=== PATIENT | male | born 1950 | race Caucasian/White ===

== ENCOUNTER 2017-03-27 18:16 | Inpatient (IN) | payer BC ==
[2017-03-27] MEDS ORDERED: Diltiazem IV* 5 MG/ML 5 ML VIAL (for loading dose/IV Push) (25 MG) IV PUSH ONE (19:39)
[2017-03-27] MEDS ORDERED: NS 0.9% 1000 ML* 1,000 ML IV ONE (19:39)
[2017-03-27 20:00] LABS: Hematocrit 40 % (42-52); Hemoglobin 13.6 g/dl (14.0-18.0); Mean Corpuscular HGB Conc 35 g/dl (31-36); Mean Corpuscular Hemoglobin 33 pg (27-31); Mean Corpuscular Volume 95 fL (80-94); Mean Platelet Volume 7 um3 (7.4-10.4); Red Blood Count 4.18 10^6/ul (4.0-5.4); Red Cell Distribution Width 13 % (10.5-15)
[2017-03-27 20:15] LABS: BUN/Creatinine Ratio 28.3 (8-20); Calcium 9.3 mg/dL (8.6-10.3); EGFR African American 106.2 (>60); EGFR Non-African American 82.6 (>60); Magnesium 1.9 mg/dL (1.9-2.7); Potassium 3.6 mmol/L (3.5-5.0); Total Bilirubin 0.6 mg/dL (0.2-1.0)
[2017-03-27 20:17] LABS: Troponin I 0.01 ng/mL (<0.04)
--- NOTE | 2017-03-27 20:53 | ED ---
Bruna Cook Erika, scribed for Anam Lennon MD on 03/27/17 at 2034 . HPI Febrile Illness - HPI Summary HPI Summary: Patient is a 66-year-old male presenting to the ED with a CC of fever. Patient reports that for the past 2 days, he has had a fever with a T max around 101 - pt has been taking ibuprofen, most recently at 12:00 today. This afternoon, patient also developed SOB on exertion. He denies cough, chest pain, nausea, vomiting, and diarrhea. He does note that starting on 03/25/2017, he has had painless swelling in his right toes, which has not changed since then. Pt denies Hx arrhythmia. He does note echocardiogram 2 years ago which he states showed atrial enlargement and slight ventricular wall enlargement. Hx rosacea. Pt denies Hx DM. He states he has 1 drink/night and has never smoked. - History of Current Complaint Chief Complaint: EDFever Time Seen by Provider: 03/27/17 19:34 Hx Obtained From: Patient Onset/Duration: Started Days Ago - 2 days Timing: Constant Temperature: 101 F Current Severity: Mild Pain Intensity: 0 Pain Scale Used: 0-10 Numeric Alleviating Factors: OTC Medicine - ibuprofen Associated Signs and Symptoms: SOB - on exertion today - Allergy/Home Medications Allergies/Adverse Reactions: Allergies Allergy/AdvReac Type Severity Reaction Status Date / Time Sulfa Antibiotics Allergy Rash Verified 03/28/17 03:09 Home Medications: Home Medications Atorvastatin* [Lipitor*] 20 mg PO QPM 03/27/17 [History Confirmed 03/27/17] Minocycline HCl 50 mg PO DAILY PRN 03/27/17 [History Confirmed 03/27/17] PMH/Surg Hx/FS Hx/Imm Hx Endocrine/Hematology History: Denies: Hx Diabetes Cardiovascular History: Reports: Hx Hypertension Infectious Disease History: No Infectious Disease History: Denies: Traveled Outside the [place] in Last 30 Days - Family History Known Family History: Positive: Other - subarachnoid hemorrhage in brother age 31 - Social History Alcohol Use: Daily - 1 drink Hx Substance Use: No Substance Use Type: Reports: None Hx Tobacco Use: No Smoking Status (MU): Never Smoked Tobacco Review of Systems Positive: Fever Negative: Chest Pain Positive: Shortness Of Breath. Negative: Cough Negative: Vomiting, Diarrhea, Nausea Positive: Edema - R toes All Other Systems Reviewed And Are Negative: Yes Physical Exam Triage Information Reviewed: Yes Vital Signs On Initial Exam: Initial Vitals Temp Pulse Resp BP Pulse Ox 100.4 F 76 20 152/68 97 03/27/17 18:52 03/27/17 18:52 03/27/17 18:52 03/27/17 18:52 03/27/17 18:52 Vital Signs Reviewed: Yes Appearance: Positive: No Pain Distress, Ill-Appearing Skin: Positive: Warm Head/Face: Positive: Normal Head/Face Inspection Eyes: Positive: ZHANNA ENT: Positive: Hearing grossly normal Neck: Positive: Supple Respiratory/Lung Sounds: Positive: Clear to Auscultation, Breath Sounds Present Cardiovascular: Positive: IRR, Tachycardia. Negative: Murmur, Leg Edema Left, Leg Edema Right Abdomen Description: Positive: Nontender, Soft Bowel Sounds: Positive: Present Musculoskeletal: Positive: Strength/ROM Intact Neurological: Positive: Alert, Oriented to Person Place, Time Psychiatric: Positive: Affect/Mood Appropriate - [place] Coma Scale Coma Scale Total: 15 Diagnostics - Vital Signs Vital Signs Temp Pulse Resp BP Pulse Ox 03/27/17 19:18 153/98 03/27/17 18:52 100.4 F 76 20 152/68 97 - Laboratory Lab Results: Lab Results 03/27/17 03/27/17 03/27/17 Range/Units 19:51 19:51 19:51 WBC 8.0 (3.5-10.8) 10^3/ul RBC 4.18 (4.0-5.4) 10^6/ul Hgb 13.6 L (14.0-18.0) g/dl Hct 40 L (42-52) % MCV 95 H (80-94) fL MCH 33 H (27-31) pg MCHC 35 (31-36) g/dl RDW 13 (10.5-15) % Plt Count 150 (150-450) 10^3/ul MPV 7 L (7.4-10.4) um3 Neut % (Auto) 80.2 (38-83) % Lymph % (Auto) 10.0 L (25-47) % Alpine % (Auto) 8.3 (1-9) % Eos % (Auto) 0.6 (0-6) % Baso % (Auto) 0.9 (0-2) % Absolute Neuts (auto) 6.4 (1.5-7.7) 10^3/ul Absolute Lymphs (auto) 0.8 L (1.0-4.8) 10^3/ul Absolute Monos (auto) 0.7 (0-0.8) 10^3/ul Absolute Eos (auto) 0.1 (0-0.6) 10^3/ul Absolute Basos (auto) 0.1 (0-0.2) 10^3/ul Absolute Nucleated RBC 0 10^3/ul Nucleated RBC % 0 Sodium 138 (133-145) mmol/L Potassium 3.6 (3.5-5.0) mmol/L Chloride 105 (101-111) mmol/L Carbon Dioxide 23 (22-32) mmol/L Anion Gap 10 (2-11) mmol/L BUN 26 H (6-24) mg/dL Creatinine 0.92 (0.67-1.17) mg/dL Est GFR ( Amer) 106.2 (>60) Est GFR (Non-Af Amer) 82.6 (>60) BUN/Creatinine Ratio 28.3 H (8-20) Glucose 129 H (70-100) mg/dL Lactic Acid 0.7 (0.5-2.0) mmol/L Calcium 9.3 (8.6-10.3) mg/dL Magnesium 1.9 (1.9-2.7) mg/dL Total Bilirubin 0.60 (0.2-1.0) mg/dL AST 20 (13-39) U/L ALT 20 (7-52) U/L Alkaline Phosphatase 49 (34-104) U/L Troponin I 0.01 (<0.04) ng/mL B-Natriuretic Peptide ( - 100) pg/mL Total Protein 7.0 (6.4-8.9) g/dL Albumin 4.0 (3.2-5.2) g/dL Globulin 3.0 (2-4) g/dL Albumin/Globulin Ratio 1.3 (1-3) TSH Pending 03/27/17 Range/Units 19:51 WBC (3.5-10.8) 10^3/ul RBC (4.0-5.4) 10^6/ul Hgb (14.0-18.0) g/dl Hct (42-52) % MCV (80-94) fL MCH (27-31) pg MCHC (31-36) g/dl RDW (10.5-15) % Plt Count (150-450) 10^3/ul MPV (7.4-10.4) um3 Neut % (Auto) (38-83) % Lymph % (Auto) (25-47) % Alpine % (Auto) (1-9) % Eos % (Auto) (0-6) % Baso % (Auto) (0-2) % Absolute Neuts (auto) (1.5-7.7) 10^3/ul Absolute Lymphs (auto) (1.0-4.8) 10^3/ul Absolute Monos (auto) (0-0.8) 10^3/ul Absolute Eos (auto) (0-0.6) 10^3/ul Absolute Basos (auto) (0-0.2) 10^3/ul Absolute Nucleated RBC 10^3/ul Nucleated RBC % Sodium (133-145) mmol/L Potassium (3.5-5.0) mmol/L Chloride (101-111) mmol/L Carbon Dioxide (22-32) mmol/L Anion Gap (2-11) mmol/L BUN (6-24) mg/dL Creatinine (0.67-1.17) mg/dL Est GFR ( Amer) (>60) Est GFR (Non-Af Amer) (>60) BUN/Creatinine Ratio (8-20) Glucose (70-100) mg/dL Lactic Acid (0.5-2.0) mmol/L Calcium (8.6-10.3) mg/dL Magnesium (1.9-2.7) mg/dL Total Bilirubin (0.2-1.0) mg/dL AST (13-39) U/L ALT (7-52) U/L Alkaline Phosphatase (34-104) U/L Troponin I (<0.04) ng/mL B-Natriuretic Peptide 322 H ( - 100) pg/mL Total Protein (6.4-8.9) g/dL Albumin (3.2-5.2) g/dL Globulin (2-4) g/dL Albumin/Globulin Ratio (1-3) TSH Result Diagrams: 03/27/17 19:51 03/28/17 00:10 Lab Statement: Any lab studies that have been ordered have been reviewed, and results considered in the medical decision making process. - Radiology CXR Radiology Interpretation Completed By: Radiologist - IMPRESSION: HYPERINFLATION. NO ACTIVE DISEASE. - EKG 19:07 Cardiac Rate: Tachycardia - at 146 bpm EKG Rhythm: Atrial Fibrillation - with RVR Course/Dx - Course Assessment/Plan: A 66 y/o M presents to the ED with complaints of fever, SOB on exertion. In the ED, pt is noted to be in new-onset A Fib with RVR. CXR shows hyperinflation with no active disease. Patient is given IV fluids and diltiazem in the ED. Case discussed with Dr. Boss who accepts patient for admission for further work up and management. - Diagnoses Provider Diagnoses: Atrial fibrillation, new onset - Provider Notifications Discussed Care Of Patient With: Dr. Boss (hospitalist) at 19:45 agrees to admit Instructed by Provider To: Admit As Inpatient - Critical Care Time Critical Care Time: 30-74 min Discharge - Discharge Plan Condition: Fair Disposition: ADMITTED TO [facility] The documentation as recorded by the Bruna patel Erika accurately reflects the service I personally performed and the decisions made by , Anam Lennon MD.
[2017-03-27 21:04] LABS: TSH (Thyroid Stimulating Horm) 3.47 mcIU/mL (0.34-5.60)
[2017-03-27 22:01] LABS: Urine Bilirubin Negative (Negative); Urine Glucose Negative (Negative); Urine Nitrite Negative (Negative)
[2017-03-27] MEDS ORDERED: Diltiazem IV* 5 MG/ML 5 ML VIAL (for loading dose/IV Push) (25 MG) IV SLOW PU ONE (22:08)
[2017-03-27] MEDS ORDERED: Diltiazem IV VIAL* 125 MG in D5W 100 ML BAG* 100 ML IV ONE (22:08)
--- NOTE | 2017-03-27 22:11 | RAD ---
INDICATION: Short of breath COMPARISON: August 14, 2014 TECHNIQUE: PA and lateral dual-energy views were obtained. FINDINGS: Bones/Soft Tissues: There are no acute bony findings. There are surgical clips projecting over the lateral right lung apex Cardiomediastinal: The cardiac silhouette is mildly prominent. Lungs: There are no infiltrates. There is hyperinflation Pleura: There are no pleural effusions. Other: None IMPRESSION: HYPERINFLATION. NO ACTIVE DISEASE.
[2017-03-27] MEDS ORDERED: Acetaminophen TAB* 325 MG ONE (22:37)
[2017-03-27] MEDS ORDERED: Diltiazem DRIP* 100 MG/100 ML ADDV.BAG IVPB ONE (22:39)
[2017-03-27] MEDS ORDERED: Acetaminophen TAB* 325 MG PO ONE (22:40)
[2017-03-27] MEDS ORDERED: Acetaminophen TAB* 325 MG PO PRN (22:44)
[2017-03-27] MEDS ORDERED: Heparin DRIP 25,000 UNITS(*) 25,000 UNITS/500 ML BAG IVPB SCH (22:45)
[2017-03-27] MEDS ORDERED: NS 0.9% 1000 ML* 1,000 ML IV SCH (22:45)
[2017-03-27] MEDS ORDERED: Magnesium Sulfate 2 GM IV* 2 GM/50 ML BAG IVPB ONE (22:50)
[2017-03-27] MEDS ORDERED: Potassium Chlor TAB* 20 MEQ TAB.ER PO ONE (22:50)
[2017-03-27] MEDS: Diltiazem DRIP* 100 MG/100 ML ADDV.BAG IVPB ONE (22:53)
[2017-03-27] MEDS: NS 0.9% 1000 ML* 2,000 ML IV ONE (22:57)
[2017-03-27] MEDS ORDERED: Heparin VIAL(*) 5000 UNITS/ML VIAL (FIVE THOUSAND) IV SCH (23:00)
[2017-03-27] MEDS ORDERED: Iohexol 300* (CONTRAST) 10 ML SDV IV ONE (23:01)
[2017-03-27] MEDS ORDERED: Iohexol 350* (CONTRAST) 500 ML MDV IV ONE (23:05)
[2017-03-28] MEDS ORDERED: Vancomycin per Pharmacy* NOTE FOLLOW UP PRN (01:13)
[2017-03-28] MEDS ORDERED: Vancomycin(*) 1,500 MG in NS 0.9% 250 ML* 250 ML IVPB ONE (01:15)
--- NOTE | 2017-03-28 02:35 | HP ---
HISTORY AND PHYSICAL: DATE OF ADMISSION: 03/27/17 PRIMARY CARE PROVIDER: Robinson Sharp MD ATTENDING PHYSICIAN WHILE IN THE HOSPITAL: Ari Boss MD* (report dictated by Spencer Barbosa NP) CHIEF COMPLAINT: 1. Not feeling well. 2. Redness to right lower extremity second and third toe. HISTORY OF PRESENTING ILLNESS: Mr. Johnson is a 66-year-old male patient. He carries a history of hypertension, hyperlipidemia, BPH, and LAYNE. He comes into the ER today stating that over the weekend, he noticed he started developing some redness to his second and third toe. He noticed yesterday and today that he was having fevers off and on. He was feeling fatigued, feeling weak, was not feeling good. He was concerned. He was not feeling good, having fevers and feeling febrile. He was feeling short of breath and weak. He came into the ER here today. It was noted that he was in AFib. He denied having any chest pain. He did admit to having palpitations. He thinks he may have felt some yesterday. He is not really sure when he started feeling palpitations. He says that he had no nausea, vomiting, or diarrhea. He denied any changes in his medications. He was concerned though because he was still having a fever and how he was feeling was concerning to him. He was also worried about possible DVT, so he came in to the hospital today to be evaluated. PAST MEDICAL HISTORY: Significant for: 1. Hypertension. 2. Hyperlipidemia. 3. BPH. 4. LAYNE. PAST SURGICAL HISTORY: He has had a hernia repair. HOME MEDICATIONS: According to his recall include: 1. Minocycline 50 mg p.o. daily as needed. 2. Metronidazole topically 1% topically daily as needed. 3. Chlorthalidone 12.5 mg p.o. daily. 4. Centrum Silver 1 tablet daily. 5. Norvasc 10 mg daily. 6. Alfuzosin 10 mg p.o. daily. 7. Lipitor 20 mg daily. 8. Psyllium 2 tablespoons p.o. daily. 9. Diovan 160 mg daily. ALLERGIES TO MEDICATIONS: Include SULFA DRUGS. FAMILY HISTORY: His mother had colon cancer. Father had a history of chronic kidney disease. SOCIAL HISTORY: The patient does not smoke. He does not drink. Surrogate decision maker is his sister. REVIEW OF SYSTEMS: There is a documented fever. He denied having any significant weight change. There was no double vision. He denies have any ear discharge. There was no rhinorrhea. There was no sore throat. No thyroid enlargement. Denies having any chest pain. There was no orthopnea. No nocturnal dyspnea. There was no abdominal pain. There was no nausea. No vomiting. No dysuria. No frequency. No seizure. No loss of conscious. No pruritus. No skin ulceration. Review of 14 systems completed, all others negative. PHYSICAL EXAMINATION GENERAL: At this time, Mr. Johnson is a 66-year-old male patient who appears to be well nourished, well developed. He does not appear to be in any acute distress. He is sitting in the ER stretcher. VITAL SIGNS: Blood pressure 142/80 with a pulse of 136, respirations 20, O2 sat 95%, and temperature 101. HEENT: Head is atraumatic and normocephalic. Eyes: EOMs are intact. Sclerae were anicteric and not pale. Throat: Oral mucosa appears to be dry. No oropharyngeal erythema. NECK: Supple. LUNGS: Clear to auscultation bilaterally. No wheezes, rales, or rhonchi. HEART: Sounds S1, S2. Regular rate and rhythm. No murmurs, rubs, or gallops. ABDOMEN: Soft, flat, and nontender. Bowel sounds present. EXTREMITIES: Pulses 2+ throughout. He has had no peripheral edema. No calf tenderness. He is able to move all 4 extremities with 5/5 strength. NEUROLOGIC: The patient is awake, alert, oriented x3. Tongue midline. Manhole Stripper were equal. He had no gross focal deficits. SKIN: Intact. He does have an area of erythema noted to the second and third toe on the right foot. There is erythema extending to the right pedal area. No open areas were noted. DIAGNOSTIC STUDIES/LAB DATA: His labs today revealed a WBC of 8.0, RBC of 4.18 , hemoglobin 13.6, hematocrit 40, platelet count 150. D-dimer was 261. Sodium was 138, potassium 3.6, chloride of 105, bicarb 23, BUN 26, creatinine of 0.92, glucose 129, lactic 0.7, and calcium 9.3. Total bili 0.6. Mag 1.9. AST 20, ALT 20, and alk phos 49. Troponin 0.01. Albumin of 4.0. There was a urine which was obtained, it was negative. He had a chest x-ray obtained today which revealed hyperinflation. No active disease. He had an EKG obtained today as well, which revealed atrial fibrillation with a rate of 146. No previous EKG for comparison. No ST elevation or T-wave inversions. Old medical records were reviewed. ASSESSMENT AND PLAN: Mr. Johnson is a 66-year-old male patient coming into the ER today with complaints of not feeling well with fever. On evaluation, he was found to be in atrial fibrillation. We were asked to evaluate for admission. He will be admitted under inpatient status for: 1. Cellulitis: I suspect he has got a cellulitis in the second and third toe. 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 I think it is appropriate to go ahead and put him on the vanco for the time being to cover this. Also, his D -dimer is marginally elevated and he has got new atrial fibrillation, so I want to make sure the source of the fever is not something like a deep venous thrombosis or pulmonary embolism, so I am going to do an ultrasound and a CTA of the chest. I will put him on vancomycin. We will hydrate him. I am going to give him 2 L of fluid and try to control his fever. He will continue to follow. 2. Atrial fibrillation, which is new onset: Certainly, he is a setup for atrial fibrillation and he has history of obstructive sleep apnea. He has a hypertension. In addition to this, now he has a fever and he appears to be septic. Plan is treat the underlying sepsis. Try to get the rate control. I did put him on heparin in the setting of acute illness just in case we need to do any procedures. I did discuss with him he most likely will need long-time anticoagulation as his CHADS- VASc score is a 2 and the patient himself is thinking about whether or not he would like to go with the Eliquis, Xarelto, Pradaxa, or Coumadin. At the time being due to acute illness, we will go ahead and keep him on heparin. 3. Hypertension: He will be on a diltiazem drip. I will hold his meds in the setting of acute illness. 4. Hyperlipidemia: We will continue current medical regimen. 5. History of benign prostatic hyperplasia: Continue meds as prescribed. 6. Obstructive sleep apnea: I did order a CPAP. 7. DVT prophylaxis: We will go ahead and continue the heparin. 8. Code status: Full code. 9. Fluids, electrolytes, and nutrition: He can have a heart healthy diet. TIME SPENT: Time spent on the admission was approximately 70 minutes; greater than half the time was spent [id number] with the patient obtaining my history and physical, the other half time is spent going over the plan of care with the patient and implementing plan of care. I did discussed the plan of care with my attending, Dr. Boss. He is in agreement. SPENCER BARBOSA NP CC: Dr. Sharp* [id number]/CPS #: [id number]
[2017-03-28] MEDS: Diltiazem DRIP* 100 MG/100 ML ADDV.BAG IVPB ONE (05:26)
[2017-03-28 06:51] LABS: Hematocrit 39 % (42-52); Hemoglobin 13.1 g/dl (14.0-18.0); Mean Corpuscular HGB Conc 34 g/dl (31-36); Mean Corpuscular Hemoglobin 32 pg (27-31); Mean Corpuscular Volume 96 fL (80-94); Mean Platelet Volume 8 um3 (7.4-10.4); Red Blood Count 4.06 10^6/ul (4.0-5.4); Red Cell Distribution Width 13 % (10.5-15); White Blood Count 8.3 10^3/ul (3.5-10.8)
[2017-03-28 07:14] LABS: BUN/Creatinine Ratio 18.3 (8-20); Calcium 8.2 mg/dL (8.6-10.3); EGFR African American 143.2 (>60); EGFR Non-African American 111.3 (>60); Potassium 3.4 mmol/L (3.5-5.0)
--- NOTE | 2017-03-28 07:43 | RAD ---
HISTORY: Atrial fibrillation, fever, elevated d-dimer COMPARISONS: None TECHNIQUE: Multiple contiguous axial CT scans of the chest were obtained after the administration of nonionic intravenous contrast, timed to the pulmonary arterial phase of contrast enhancement.. Coronal and sagittal multiplanar reformations are also submitted for review. FINDINGS: NECK AND THYROID: The lower neck and thyroid are unremarkable. CHEST WALL: There is no lower cervical, axillary, or supraclavicular lymphadenopathy by size criteria. HEART AND PERICARDIUM: The heart is unremarkable. AORTA AND PULMONARY VASCULATURE: There is mild enlargement of the pulmonary arterial tree. There is no pulmonary arterial filling defects to suggest pulmonary embolism. The aorta is unremarkable for technique. MEDIASTINUM: There is no mediastinal lymphadenopathy by size criteria. ANGEL: There is no hilar lymphadenopathy by size criteria. AIRWAY AND ESOPHAGUS: The airway is unremarkable, without endobronchial filling defect. The esophagus is grossly normal. LUNG PARENCHYMA: The lungs are clear. The mosaic attenuation noted on the preliminary evaluation is not clearly appreciated on the submitted images. PLEURA: No pleural abnormalities are noted. UPPER ABDOMEN: There is a simple cyst of the left lobe of liver BONES AND SOFT TISSUES: Degenerative changes are noted OTHER: None. IMPRESSION: 1. NO PULMONARY ARTERIAL FILLING DEFECT TO SUGGEST PULMONARY EMBOLISM. 2. ENLARGEMENT OF THE PULMONARY ARTERIAL TREE SUGGESTIVE OF PULMONARY ARTERIAL HYPERTENSION
[2017-03-28] MEDS ORDERED: Perflutren Lipid Microsphere* 3 ML VIAL ONE (08:46)
[2017-03-28] MEDS ORDERED: CMCS:Alfuzosin ER (NF) 10 MG TAB.ER PO SCH (09:00)
--- NOTE | 2017-03-28 09:21 | PN ---
Subjective Date of Service: 03/28/17 Interval History: No more pain R foot. Pain was mild on admission. Pt states the redness R foot is much less intense and had receded from the dorsum of his foot toward the toes. Objective Active Medications: Acetaminophen (Tylenol Tab*) 650 mg PO Q4H PRN PRN Reason: FEVER/PAIN Alfuzosin HCl (Uroxatral (Nf)) 10 mg PO DAILY [facility] Last Admin: 03/28/17 07:42 Dose: Not Given Atorvastatin Calcium (Lipitor*) 20 mg PO QPM [facility] Vancomycin HCl 1,000 mg/ (Sodium Chloride) 250 mls @ 166.667 mls/hr IVPB Q8H [facility] Last Admin: 03/28/17 09:10 Dose: Not Given Pharmacy Profile Note (Vancomycin Trough Check) 1 note FOLLOW UP 020 ONE Stop: 03/29/17 02:01 Vital Signs 03/27/17 03/27/17 03/27/17 23:00 23:03 23:14 Temperature Pulse Rate 127 134 Respiratory 29 22 Rate Blood Pressure 123/77 (mmHg) O2 Sat by Pulse 95 96 Oximetry 03/27/17 03/27/17 03/28/17 23:45 23:59 00:03 Temperature 100.8 F Pulse Rate 126 131 Respiratory 30 16 Rate Blood Pressure 125/78 130/78 (mmHg) O2 Sat by Pulse 96 96 Oximetry 03/28/17 03/28/17 03/28/17 00:05 00:56 01:00 Temperature 100.8 F Pulse Rate 127 129 Respiratory 24 Rate Blood Pressure 125/78 130/72 (mmHg) O2 Sat by Pulse 95 95 Oximetry 03/28/17 03/28/17 03/28/17 01:04 01:15 01:20 Temperature Pulse Rate 124 120 123 Respiratory 24 28 30 Rate Blood Pressure 130/77 132/78 (mmHg) O2 Sat by Pulse 96 95 94 Oximetry 03/28/17 03/28/17 03/28/17 01:30 01:45 02:00 Temperature Pulse Rate 119 123 120 Respiratory 21 20 35 Rate Blood Pressure 133/92 118/76 136/85 (mmHg) O2 Sat by Pulse 96 96 95 Oximetry 03/28/17 03/28/17 03/28/17 02:30 03:00 03:30 Temperature Pulse Rate 124 120 111 Respiratory 28 29 28 Rate Blood Pressure 127/98 133/85 120/92 (mmHg) O2 Sat by Pulse 95 95 95 Oximetry 03/28/17 03/28/17 03/28/17 04:00 04:30 05:00 Temperature 99.5 F Pulse Rate 105 111 112 Respiratory 25 32 30 Rate Blood Pressure 138/101 129/82 137/81 (mmHg) O2 Sat by Pulse 95 96 96 Oximetry 03/28/17 03/28/17 03/28/17 05:30 05:54 06:00 Temperature Pulse Rate 114 112 Respiratory 31 26 30 Rate Blood Pressure 137/93 145/76 (mmHg) O2 Sat by Pulse 95 95 Oximetry 03/28/17 03/28/17 03/28/17 06:30 06:46 07:00 Temperature Pulse Rate 98 106 110 Respiratory 26 22 25 Rate Blood Pressure 101/69 131/79 130/81 (mmHg) O2 Sat by Pulse 94 97 97 Oximetry 03/28/17 03/28/17 03/28/17 07:19 08:00 08:24 Temperature 100.0 F Pulse Rate 73 Respiratory 28 20 Rate Blood Pressure 142/130 (mmHg) O2 Sat by Pulse 96 Oximetry 03/28/17 03/28/17 03/28/17 08:47 09:00 09:11 Temperature Pulse Rate 74 73 Respiratory 27 25 22 Rate Blood Pressure 117/73 129/71 (mmHg) O2 Sat by Pulse 94 93 Oximetry Oxygen Devices in Use Now: None Appearance: Alert, supine in bed. In good spirits. Looks comfortable. Eyes: No Scleral Icterus Ears/Nose/Mouth/Throat: Clear Oropharnyx, Mucous Membranes Moist Neck: NL Appearance and Movements; NL JVP, No Thyroid Enlargement, Masses Respiratory: Symmetrical Chest Expansion and Respiratory Effort, Clear to Auscultation, Clear to Percussion Cardiovascular: NL Sounds; No Murmurs; No JVD, RRR, No Edema, - Extremities: No Clubbing, Cyanosis, - - Minimal edema R forefoot if any Skin: No Nodules or Sclerosis, - - Mild erythema R forefoot and all toes. Fungal intertrigo all toes. Neurological: Alert and Oriented x 3, NL Sensation Result Diagrams: 03/28/17 05:35 03/28/17 05:35 Additional Lab and Data: Lab Results 05/29/17 05/29/17 05/29/17 Range/Units 19:51 19:51 19:51 WBC 8.0 (3.5-10.8) 10^3/ul RBC 4.18 (4.0-5.4) 10^6/ul Hgb 13.6 L (14.0-18.0) g/dl Hct 40 L (42-52) % MCV 95 H (80-94) fL MCH 33 H (27-31) pg MCHC 35 (31-36) g/dl RDW 13 (10.5-15) % Plt Count 150 (150-450) 10^3/ul MPV 7 L (7.4-10.4) um3 Neut % (Auto) 80.2 (38-83) % Lymph % (Auto) 10.0 L (25-47) % Jennings % (Auto) 8.3 (1-9) % Eos % (Auto) 0.6 (0-6) % Baso % (Auto) 0.9 (0-2) % Absolute Neuts (auto) 6.4 (1.5-7.7) 10^3/ul Absolute Lymphs (auto) 0.8 L (1.0-4.8) 10^3/ul Absolute Monos (auto) 0.7 (0-0.8) 10^3/ul Absolute Eos (auto) 0.1 (0-0.6) 10^3/ul Absolute Basos (auto) 0.1 (0-0.2) 10^3/ul Absolute Nucleated RBC 0 10^3/ul Nucleated RBC % 0 Sodium 138 (133-145) mmol/L Potassium 3.6 (3.5-5.0) mmol/L Chloride 105 (101-111) mmol/L Carbon Dioxide 23 (22-32) mmol/L Anion Gap 10 (2-11) mmol/L BUN 26 H (6-24) mg/dL Creatinine 0.92 (0.67-1.17) mg/dL Est GFR ( Amer) 106.2 (>60) Est GFR (Non-Af Amer) 82.6 (>60) BUN/Creatinine Ratio 28.3 H (8-20) Glucose 129 H (70-100) mg/dL Lactic Acid 0.7 (0.5-2.0) mmol/L Calcium 9.3 (8.6-10.3) mg/dL Magnesium 1.9 (1.9-2.7) mg/dL Total Bilirubin 0.60 (0.2-1.0) mg/dL AST 20 (13-39) U/L ALT 20 (7-52) U/L Alkaline Phosphatase 49 (34-104) U/L Troponin I 0.01 (<0.04) ng/mL B-Natriuretic Peptide ( - 100) pg/mL Total Protein 7.0 (6.4-8.9) g/dL Albumin 4.0 (3.2-5.2) g/dL Globulin 3.0 (2-4) g/dL Albumin/Globulin Ratio 1.3 (1-3) TSH Pending 03/27/17 Range/Units 19:51 WBC (3.5-10.8) 10^3/ul RBC (4.0-5.4) 10^6/ul Hgb (14.0-18.0) g/dl Hct (42-52) % MCV (80-94) fL MCH (27-31) pg MCHC (31-36) g/dl RDW (10.5-15) % Plt Count (150-450) 10^3/ul MPV (7.4-10.4) um3 Neut % (Auto) (38-83) % Lymph % (Auto) (25-47) % Jennings % (Auto) (1-9) % Eos % (Auto) (0-6) % Baso % (Auto) (0-2) % Absolute Neuts (auto) (1.5-7.7) 10^3/ul Absolute Lymphs (auto) (1.0-4.8) 10^3/ul Absolute Monos (auto) (0-0.8) 10^3/ul Absolute Eos (auto) (0-0.6) 10^3/ul Absolute Basos (auto) (0-0.2) 10^3/ul Absolute Nucleated RBC 10^3/ul Nucleated RBC % Sodium (133-145) mmol/L Potassium (3.5-5.0) mmol/L Chloride (101-111) mmol/L Carbon Dioxide (22-32) mmol/L Anion Gap (2-11) mmol/L BUN (6-24) mg/dL Creatinine (0.67-1.17) mg/dL Est GFR ( Amer) (>60) Est GFR (Non-Af Amer) (>60) BUN/Creatinine Ratio (8-20) Glucose (70-100) mg/dL Lactic Acid (0.5-2.0) mmol/L Calcium (8.6-10.3) mg/dL Magnesium (1.9-2.7) mg/dL Total Bilirubin (0.2-1.0) mg/dL AST (13-39) U/L ALT (7-52) U/L Alkaline Phosphatase (34-104) U/L Troponin I (<0.04) ng/mL B-Natriuretic Peptide 322 H ( - 100) pg/mL Total Protein (6.4-8.9) g/dL Albumin (3.2-5.2) g/dL Globulin (2-4) g/dL Albumin/Globulin Ratio (1-3) TSH Microbiology and Other Data: Microbiology 03/27/17 23:15 Nasal Screen MRSA (PCR)(ADRIEL) - Final Nasal Mrsa Negative Assess/Plan/Problems-Billing Assessment: - Patient Problems (1) Cellulitis Current Visit: Yes Status: Acute Code(s): L03.90 - CELLULITIS, UNSPECIFIED SNOMED Code(s): 092122930 Comment: Much improved per patient's assessment. Change to oral cephalexin, 1 dose here and 15 doses as outpt. (2) HTN (hypertension) Current Visit: Yes Status: Acute Code(s): I10 - ESSENTIAL (PRIMARY) HYPERTENSION SNOMED Code(s): 16235585 Comment: Resume valsartan. Patient has home BP cuff, will self-monitor and consult with Dr. Lila hendrix resuming amlodipine. (3) Hyperlipidemia Current Visit: Yes Status: Acute Code(s): E78.5 - HYPERLIPIDEMIA, UNSPECIFIED SNOMED Code(s): 40873084 Comment: Continue statin. (4) PAF (paroxysmal atrial fibrillation) Current Visit: Yes Status: Acute Code(s): I48.0 - PAROXYSMAL ATRIAL FIBRILLATION SNOMED Code(s): 742477841 Comment: Likely due to combination of infection/fever and known atrial enlargement and LVH. May need oupt Holter to assess budern of AF. (5) LAYNE (obstructive sleep apnea) Current Visit: Yes Status: Acute Code(s): G47.33 - OBSTRUCTIVE SLEEP APNEA ( ADULT) (PEDIATRIC) SNOMED Code(s): 36308252 Comment: RT had difficulty supplying CPAP, pt prefers to wait until he gets home to resume CPAP.
[2017-03-28] MEDS: Clotrimazole 1% CREAM* 45 GM TOPICAL SCH ×2 (09:47→20:52)
[2017-03-28] MEDS: Valsartan TAB* 160 MG PO SCH (09:47)
[2017-03-28] MEDS ORDERED: Chlorthalidone TAB* 50 MG PO SCH (10:00)
[2017-03-28] MEDS ORDERED: Vancomycin(*) 1,000 MG in NS 0.9% 250 ML* 250 ML IVPB SCH (10:00)
[2017-03-28] MEDS: ceFAZolin VIAL(*) 1 GM in NS 0.9% 50 ML* 50 ML IVPB SCH ×2 (10:17→17:01)
[2017-03-28] MEDS: Chlorthalidone TAB* 50 MG PO SCH (10:17)
--- NOTE | 2017-03-28 10:19 | ECHO ---
Patient: FABIAN COLE [facility] Rec#: [id number] : 1950 Date: 03/28/2017 Age: 66y Height: 170.18 cm / 67.0 in Weight: 90.72 kg / 199.9 lbs Sex: M BSA: 2.02 Room#: [facility] Admit Date#: 03/27/2017 Type: Inpatient Referring: Spencer Barbosa NP Reading: Davy Robbins MD Oral And Maxillofacial Surgery: Jamila Bansal RDCS CC: Robinson Sharp MD Transthoracic Echocardiogram Indication: New A-fib BP: 137/93 HR: 80 Rhythm: NSR with PACs Findings History: HTN,HLD,new a-fib,cellulitis,LAYNE. Technical Comments: The study is technically limited due to patient body habitus. Left Ventricle: The left ventricular chamber size is normal. Mild concentric left ventricular hypertrophy is observed. Global left ventricular wall motion and contractility are within normal limits. There is normal left ventricular systolic function. The estimated ejection fraction is 55-60%. Normal left ventricular diastolic filling is observed. Left Atrium: The left atrium is mild to moderately dilated. Right Ventricle: The right ventricular cavity size is normal. The right ventricular global systolic function is normal. Right Atrium: The right atrium is mildly dilated. Aortic Valve: The aortic valve is trileaflet. There is mild to moderate aortic regurgitation. Mitral Valve: The mitral valve leaflets appear normal. There is no evidence of mitral regurgitation. There is no evidence of mitral stenosis. Tricuspid Valve: The tricuspid valve leaflets are normal. There is no evidence of tricuspid valve regurgitation. There is no tricuspid stenosis. Pulmonic Valve: The pulmonic valve appears normal. Pericardium: The pericardium appears normal. A pericardial fat pad is visualized. Aorta: There is mild dilatation of the ascending aorta.3.8 cm There is no dilatation of the aortic arch. There is mild dilatation of the aortic root. Pulmonary Artery: The main pulmonary artery is not well visualized. Venous: The inferior vena cava is dilated. There is an approximate 50% respiratory change in the inferior vena cava dimension. Contrast: Definity was used to optimize study. A total of 4ml used. Intravenous contrast was used to enhance endocardial border definition. Summary: There are no significant changes when compared to the previous study done on 10/02/14 Conclusions Mild concentric left ventricular hypertrophy is observed. Global left ventricular wall motion and contractility are within normal limits. There is normal left ventricular systolic function. The estimated ejection fraction is 55-60%. The right ventricular global systolic function is normal. There is mild to moderate aortic regurgitation. There is no evidence of mitral regurgitation. There is no evidence of tricuspid valve regurgitation. The pericardium appears normal. Measurements Name Value Normal Range RVIDd (AP) 2D 3 cm (0.9 - 2.6) RVDdMajor (2D) 4 cm (2.2 - 4.4) RAd ISD 4CH 6.1 cm (3.4 - 4.9) RA (A4C)W 3.9 cm (2.9 - 4.6) IVSd (2D) 1.1 cm (0.6 - 1) LVPWd (2D) 1.2 cm (0.6 - 1) LVIDd (2D) 4.1 cm (3.6 - 5.4) LVIDs (2D) 3 cm - LV FS (2D) 27 % (25 - 45) Aortic Annulus 2.5 cm (1.4 - 2.6) Ao root diameter (2D) 3.8 cm (2.1 - 3.5) Ascending Ao 3.8 cm (2.1 - 3.4) Aortic arch 1.4 cm (1.8 - 3.4) Descending Ao 0.7 cm - LA dimension (AP) 2D 4.5 cm (2.3 - 3.8) LAd ISD 4CH 5.4 cm (2.9 - 5.3) LA ISD 4CH W 4.5 cm (2.5 - 4.5) Name Value Normal Range LA ESV SP 4CH (A/L) 75 ml - LA ESV SP 2CH (A/L) 57 ml - LA ESV BP (A/L) 69 ml - LA ESV BP (A/L) index 33.92 ml/m2 - LA ESV SP 4CH (MOD) 68 ml - LA ESV SP 2CH (MOD) 53 ml - Name Value Normal Range MV E-wave Vmax 1.1 m/sec - MV deceleration time 157 msec - MV A-wave Vmax 0.7 m/sec - MV E:A ratio 1.59 ratio - LV septal e' Vmax 0.08 m/sec - LV lateral e' Vmax 0.12 m/sec - LV E:e' septal ratio 13.75 ratio - LV E:e' lateral ratio 9.17 ratio - Name Value Normal Range AV Vmax 1.8 m/sec - AV VTI 36.4 cm - AV peak gradient 12.77 mmHg - AV mean gradient 6.54 mmHg - LVOT Vmax 1.4 m/sec - LVOT VTI 23.8 cm - LVOT peak gradient 7.44 mmHg - LVOT mean gradient 4.1 mmHg - AR PHT 492 msec - AR peak gradient 31.59 mmHg - Name Value Normal Range IVC diameter 2.7 cm - Name Value Normal Range PV Vmax 1 m/sec - PV peak gradient 3.85 mmHg -
[2017-03-28] MEDS ORDERED: Atorvastatin* 20 MG TAB PO SCH (18:00)
[2017-03-29] MEDS ORDERED: Vancomycin Trough Check NOTE FOLLOW UP ONE (02:00)
[2017-03-29] MEDS: ceFAZolin VIAL(*) 1 GM in NS 0.9% 50 ML* 50 ML IVPB SCH (02:15)
[2017-03-29] MEDS: Chlorthalidone TAB* 50 MG PO SCH (08:02)
[2017-03-29] MEDS: Valsartan TAB* 160 MG PO SCH (08:03)
[2017-03-29] MEDS: Clotrimazole 1% CREAM* 45 GM TOPICAL SCH (08:06)
--- NOTE | 2017-03-29 08:54 | DCNOTE ---
Subjective Date of Service: 03/29/17 Interval History: Patient states his foot seems normal. No new c/o. Objective Active Medications: Acetaminophen (Tylenol Tab*) 650 mg PO Q4H PRN PRN Reason: FEVER/PAIN Alfuzosin HCl (Uroxatral (Nf)) 10 mg PO DAILY [facility] Last Admin: 03/29/17 08:03 Dose: 10 mg Atorvastatin Calcium (Lipitor*) 20 mg PO QPM [facility] Last Admin: 03/28/17 17:01 Dose: 20 mg Cephalexin HCl (Keflex Cap*) 500 mg PO TID [facility] Chlorthalidone (Hygroton Tab*) 12.5 mg PO DAILY [facility] Last Admin: 03/29/17 08:02 Dose: 12.5 mg Clotrimazole (Clotrimazole 1%*) 1 applic TOPICAL BID [facility] Last Admin: 03/29/17 08:06 Dose: 1 applic Potassium Chloride (Klor Con Er Tab*) 20 meq PO DAILY [facility] Valsartan (Diovan Tab*) 160 mg PO DAILY [facility] Last Admin: 03/29/17 08:03 Dose: 160 mg Vital Signs 03/28/17 03/28/17 03/28/17 09:00 09:11 10:00 Temperature Pulse Rate 73 71 Respiratory 25 22 26 Rate Blood Pressure 129/71 128/67 (mmHg) O2 Sat by Pulse 93 96 Oximetry 03/28/17 03/28/17 03/28/17 11:00 11:08 11:09 Temperature Pulse Rate 67 68 Respiratory 16 29 Rate Blood Pressure 121/71 (mmHg) O2 Sat by Pulse 95 95 96 Oximetry 03/28/17 03/28/17 03/28/17 11:19 12:00 12:32 Temperature 99.5 F 99.4 F Pulse Rate 62 Respiratory 29 Rate Blood Pressure 112/70 (mmHg) O2 Sat by Pulse 93 Oximetry 03/28/17 03/28/17 03/28/17 13:04 13:06 13:07 Temperature 98.5 F 98.5 F Pulse Rate 63 63 Respiratory 18 18 18 Rate Blood Pressure 152/65 152/65 (mmHg) O2 Sat by Pulse 98 98 Oximetry 03/28/17 03/28/17 03/29/17 15:42 19:59 00:12 Temperature 98.6 F 98.5 F Pulse Rate 64 60 Respiratory 18 19 20 Rate Blood Pressure 142/63 138/78 (mmHg) O2 Sat by Pulse 95 97 Oximetry 03/29/17 04:09 Temperature 98.4 F Pulse Rate 66 Respiratory 20 Rate Blood Pressure 141/59 (mmHg) O2 Sat by Pulse 97 Oximetry Oxygen Devices in Use Now: None Appearance: Alert, sitting up in bed. In good spirits. Looks comfortable. Eyes: No Scleral Icterus Extremities: No Edema, No Clubbing, Cyanosis, - Skin: No Nodules or Sclerosis, - - mild fungal intertrigo between all toes. Neurological: Alert and Oriented x 3, NL Sensation Result Diagrams: 03/28/17 05:35 03/28/17 05:35 Additional Lab and Data: Lab Results 03/27/17 03/27/17 03/27/17 Range/Units 19:51 19:51 19:51 WBC 8.0 (3.5-10.8) 10^3/ul RBC 4.18 (4.0-5.4) 10^6/ul Hgb 13.6 L (14.0-18.0) g/dl Hct 40 L (42-52) % MCV 95 H (80-94) fL MCH 33 H (27-31) pg MCHC 35 (31-36) g/dl RDW 13 (10.5-15) % Plt Count 150 (150-450) 10^3/ul MPV 7 L (7.4-10.4) um3 Neut % (Auto) 80.2 (38-83) % Lymph % (Auto) 10.0 L (25-47) % [place] % (Auto) 8.3 (1-9) % Eos % (Auto) 0.6 (0-6) % Baso % (Auto) 0.9 (0-2) % Absolute Neuts (auto) 6.4 (1.5-7.7) 10^3/ul Absolute Lymphs (auto) 0.8 L (1.0-4.8) 10^3/ul Absolute Monos (auto) 0.7 (0-0.8) 10^3/ul Absolute Eos (auto) 0.1 (0-0.6) 10^3/ul Absolute Basos (auto) 0.1 (0-0.2) 10^3/ul Absolute Nucleated RBC 0 10^3/ul Nucleated RBC % 0 Sodium 138 (133-145) mmol/L Potassium 3.6 (3.5-5.0) mmol/L Chloride 105 (101-111) mmol/L Carbon Dioxide 23 (22-32) mmol/L Anion Gap 10 (2-11) mmol/L BUN 26 H (6-24) mg/dL Creatinine 0.92 (0.67-1.17) mg/dL Est GFR ( Amer) 106.2 (>60) Est GFR (Non-Af Amer) 82.6 (>60) BUN/Creatinine Ratio 28.3 H (8-20) Glucose 129 H (70-100) mg/dL Lactic Acid 0.7 (0.5-2.0) mmol/L Calcium 9.3 (8.6-10.3) mg/dL Magnesium 1.9 (1.9-2.7) mg/dL Total Bilirubin 0.60 (0.2-1.0) mg/dL AST 20 (13-39) U/L ALT 20 (7-52) U/L Alkaline Phosphatase 49 (34-104) U/L Troponin I 0.01 (<0.04) ng/mL B-Natriuretic Peptide ( - 100) pg/mL Total Protein 7.0 (6.4-8.9) g/dL Albumin 4.0 (3.2-5.2) g/dL Globulin 3.0 (2-4) g/dL Albumin/Globulin Ratio 1.3 (1-3) TSH Pending 03/27/17 Range/Units 19:51 WBC (3.5-10.8) 10^3/ul RBC (4.0-5.4) 10^6/ul Hgb (14.0-18.0) g/dl Hct (42-52) % MCV (80-94) fL MCH (27-31) pg MCHC (31-36) g/dl RDW (10.5-15) % Plt Count (150-450) 10^3/ul MPV (7.4-10.4) um3 Neut % (Auto) (38-83) % Lymph % (Auto) (25-47) % [place] % (Auto) (1-9) % Eos % (Auto) (0-6) % Baso % (Auto) (0-2) % Absolute Neuts (auto) (1.5-7.7) 10^3/ul Absolute Lymphs (auto) (1.0-4.8) 10^3/ul Absolute Monos (auto) (0-0.8) 10^3/ul Absolute Eos (auto) (0-0.6) 10^3/ul Absolute Basos (auto) (0-0.2) 10^3/ul Absolute Nucleated RBC 10^3/ul Nucleated RBC % Sodium (133-145) mmol/L Potassium (3.5-5.0) mmol/L Chloride (101-111) mmol/L Carbon Dioxide (22-32) mmol/L Anion Gap (2-11) mmol/L BUN (6-24) mg/dL Creatinine (0.67-1.17) mg/dL Est GFR ( Amer) (>60) Est GFR (Non-Af Amer) (>60) BUN/Creatinine Ratio (8-20) Glucose (70-100) mg/dL Lactic Acid (0.5-2.0) mmol/L Calcium (8.6-10.3) mg/dL Magnesium (1.9-2.7) mg/dL Total Bilirubin (0.2-1.0) mg/dL AST (13-39) U/L ALT (7-52) U/L Alkaline Phosphatase (34-104) U/L Troponin I (<0.04) ng/mL B-Natriuretic Peptide 322 H ( - 100) pg/mL Total Protein (6.4-8.9) g/dL Albumin (3.2-5.2) g/dL Globulin (2-4) g/dL Albumin/Globulin Ratio (1-3) TSH Microbiology and Other Data: Microbiology 03/27/17 23:15 Nasal Screen MRSA (PCR)([facility]) - Final Nasal Mrsa Negative Assess/Plan/Problems-Billing Assessment: - Patient Problems (1) Cellulitis Current Visit: Yes Status: Acute Code(s): L03.90 - CELLULITIS, UNSPECIFIED SNOMED Code(s): 196070507 Comment: Much improved per patient's assessment. Change to oral cephalexin, 1 dose here and 15 doses as outpt. (2) HTN (hypertension) Current Visit: Yes Status: Acute Code(s): I10 - ESSENTIAL (PRIMARY) HYPERTENSION SNOMED Code(s): 60950348 Comment: Resume valsartan. Patient has home BP cuff, will self-monitor and consult with Dr. Sharp re resuming amlodipine. (3) Hyperlipidemia Current Visit: Yes Status: Acute Code(s): E78.5 - HYPERLIPIDEMIA, UNSPECIFIED SNOMED Code(s): 50096728 Comment: Continue statin. (4) PAF (paroxysmal atrial fibrillation) Current Visit: Yes Status: Acute Code(s): I48.0 - PAROXYSMAL ATRIAL FIBRILLATION SNOMED Code(s): 548360594 Comment: Likely due to combination of infection/fever and known atrial enlargement and LVH. May need oupt Holter to assess budern of AF. (5) LAYNE (obstructive sleep apnea) Current Visit: Yes Status: Acute Code(s): G47.33 - OBSTRUCTIVE SLEEP APNEA ( ADULT) (PEDIATRIC) SNOMED Code(s): 21237931 Comment: Resume his CPAP at home. Status and Disposition: Discharge now. Fup Dr. Sharp.
--- NOTE | 2017-03-29 08:55 | PN ---
Progress Note - Progress Note Note: Time spent on discharge 45 minutes.
[2017-03-29 08:58] VITALS: BP 142/69
[2017-03-29] MEDS ORDERED: Potassium Chlor TAB* 10 MEQ TAB.ER PO SCH (09:00)
[2017-03-29] MEDS ORDERED: CMCS:Alfuzosin ER (NF) 10 MG TAB.ER PO SCH (09:00)
[2017-03-29] MEDS ORDERED: Cephalexin CAP* 500 MG PO SCH (09:00)
--- NOTE | 2017-03-29 12:54 | DS ---
DISCHARGE SUMMARY: DATE OF ADMISSION: 03/27/17 DATE OF DISCHARGE: 03/29/17 HISTORY OF PRESENT ILLNESS: This 66-year-old man presented with malaise and redness of the right foot, particularly around the second and third toe. In the emergency room he was found to be in atrial fibrillation with rapid ventricular response. He had really occasional palpitations, but probably none at the time he came in, and was really not aware that his heart rate or rhythm were abnormal. The rest of the history and physical is detailed in the admission note. The patient had no pedal edema and good pedal pulses. He had no calf tenderness. He had some erythema proximal to the second and third toe in the right foot. I noted fungal intertrigo between all toes. The patient was given intravenous diltiazem. He spontaneously converted to normal sinus rhythm. He was given vancomycin initially and then changed to IV cefazolin. Two blood cultures were drawn. There was no growth at the time of this dictation. The five-day incubation period has not ended. Nasal MRSA screen was negative. His white blood count was 8.0, with repeat of 8.3. His temperature peaked at 101. It was under 100 degrees for the last 24 hours in the hospital. On the telemetry, the last 24 hours he had occasional episodes of junctional bradycardia with a heart rate as low as 39. This was while he was sleeping. Clinically, his cellulitis resolved completely. He was given Lotrimin lotion to put between the toes. At the time of discharge, his amlodipine was continued to be held. He was only getting chlorthalidone and valsartan for blood pressure. His blood pressure, the last one in the computer, is 141/59. The patient has home blood pressure cuff and will self-monitor his blood pressure. We will consult with Dr. Sharp to see if and when and to what degree his amlodipine should be resumed. He will have a 5-day course of oral cephalexin at home. He was given a dose of potassium on the day of discharge and will continue 20 mEq daily. He did get potassium in the emergency room as well. Echocardiogram showed normal ejection fraction, mild left ventricular concentric hypertrophy. No diastolic dysfunction. [id number] aortic regurgitation. I would recommend that the patient have an outpatient Holter monitor at some point in the future, preferably with a normal potassium level to assess his atrial fibrillation burden. FINAL DIAGNOSES: 1. Paroxysmal atrial fibrillation, likely related to sepsis. 2. Hypertension. 3. Cellulitis, right foot, related to fungal intertrigo. 4. Hypertension. 5. Hyperlipidemia. 6. Obstructive sleep apnea. DISCHARGE MEDICATIONS: 1. Cephalexin 500 mg t.i.d. for 5 days. 2. Clotrimazole 1% lotion applied b.i.d. between all toes. 3. Potassium chloride 20 mEq daily. 4. Chlorthalidone 12.5 mg daily. 5. Alfuzosin 10 mg daily. 6. Cilium 2 tablespoons daily. 7. Metronidazole 1% topical p.r.n. 8. Centrum Silver 1 daily. 9. Valsartan 160 mg daily. 10. Atorvastatin 20 mg daily. 11. Minocycline 50 mg p.r.n. facial redness. CC: Dr. Sharp* [id number]/[facility] #: [id number] MTDD
== END 2017-03-29 11:21 | disposition home or self-care (01) | DRG 720 ==
LOC: ED 18:16 → ICU 22:42 → MEDTELE 03-28 12:58
PROVIDERS: ADMIT Hospitalist; ATTEND Internal Medicine
DX: A41.9 Sepsis, unspecified organism (principal); I48.0 Paroxysmal atrial fibrillation; L03.115 Cellulitis of right lower limb; I10 Essential (primary) hypertension; E78.5 Hyperlipidemia, unspecified; G47.33 Obstructive sleep apnea (adult) (pediatric); N40.0 Benign prostatic hyperplasia without lower urinary tract symptoms; Z79.899 Other long term (current) drug therapy; Z88.2 Allergy status to sulfonamides; Z84.1 Family history of disorders of kidney and ureter; Z80.0 Family history of malignant neoplasm of digestive organs
CPT/HCPCS: 36415; 71020; 71275; 80048; 80053; 80202; 81003; 83605; 83735; 83880; 84443; 84484; 84520; 85025; 85379; 85610; 85730; 87040; 87641; 93005; 93306; 94760; A9270-GY; C8929; J0690; J1644; J3370; Q9967

== ENCOUNTER 2024-03-28 12:20 | Inpatient (IN) ==
[2024-03-28 14:00] LABS: ABS Basophils 0.1 10^3/uL (0.0-0.1); ABS Lymphocytes 0.6 10^3/uL (1.0-4.8); ABS Monocytes 0.9 10^3/uL (0.0-1.1); ABS Neutrophils 8.6 10^3/uL (1.5-7.6); ABS Nucleated RBC 0.01 10^3/ul; Eosinophil % 0.1 %; Hematocrit 38.8 % (38-53); Hemoglobin 13.4 g/dL (13.2-16.3); Lymphocyte % 5.9 %; Mean Corpuscular Hemoglobin 33.8 pg (27-33); Mean Corpuscular Hgb Conc 34.5 g/dL (31-36); Mean Corpuscular Volume 98.1 fL (80-97); Mean Platelet Volume 7.7 fL (7.5-11.2); Nucleated Red Blood Cells % 0.1 %/100WBC (0.0-0.8); Platelet Count 167 10^3/uL (150-450); Red Blood Count 3.95 10^6/uL (4.06-5.63); Red Cell Distribution Width 12.9 % (12-17); White Blood Count 10.1 10^3/uL (3.6-10.2)
[2024-03-28 15:01] LABS: ALT 13 U/L (7-52); AST 13 U/L (13-39); Albumin 4.1 g/dL (3.2-5.2); Albumin/Globulin Ratio 1.6 (1-3); Alkaline Phosphatase 55 U/L (35-149); Anion Gap 8 mmol/L (2-16); Blood Urea Nitrogen 22 mg/dL (6-24); C Reactive Protein 114.33 mg/L (<8.01); CO2 Carbon Dioxide 27 mmol/L (22-32); Calcium 9.4 mg/dL (8.6-10.3); Chloride 104 mmol/L (101-111); Creatinine, Serum 1.29 mg/dL (0.67-1.17); Globulin 2.6 g/dL (2-4); Glucose 139 mg/dL (70-100); Potassium 4.4 mmol/L (3.5-5.0); Sodium 139 mmol/L (135-145); Total Bilirubin 1.4 mg/dL (0.2-1.0); Total Protein 6.7 g/dL (6.4-8.9); eGFR CKD-EPI 58.9 (>60)
[2024-03-28] MEDS: Piperacillin/Tazobac 3.375 BAG 3.375 GM/100 ML BAG IV ONE (15:07)
[2024-03-28] MEDS: Iodixanol (CONTRAST) 320 MG/ML 100 ML SDV IV ONE (15:52)
[2024-03-28 16:36] LABS: High Sensitivity Troponin 1 Hr 18 pg/mL (<20)
[2024-03-28 17:10] LABS: Magnesium 1.8 mg/dL (1.9-2.7); Uric Acid 7.4 mg/dL (4.4-7.6)
[2024-03-28 17:58] LABS: Erythrocyte Sed Rate 53 mm/Hr (0-19)
[2024-03-28] MEDS: Sulfur Hexaflouride MICROSPHR 25 MG VIAL IV ONE (18:20)
[2024-03-28 18:29] LABS: % Iron Saturation 6 % (15-55); .Transferrin 225 mg/dL (203-362); Iron < 20 ug/dL (50-212); Total Iron Binding Capacity 315 mcg/dL (250-450); Unsaturated Iron Binding 295 ug/dL
[2024-03-28] MEDS: Magnesium Sulfate 2 gm BAG 2 GM/50 ML BAG IVPB ONE (18:39)
[2024-03-28 18:44] LABS: TSH Ultra Thyroid Stim Horm 2.94 mcIU/mL (0.34-5.60)
[2024-03-28 18:55] LABS: Folate > 20.00 ng/mL (5.90-24.80)
[2024-03-28 18:56] LABS: Vitamin B12 504 pg/mL (180-914)
[2024-03-28] MEDS ORDERED: Zosyn per Pharmacy NOTE FOLLOW UP SCH (19:00)
[2024-03-28] MEDS: ZOSYN 3.375 GM Q8H per EXTENDED INFUSION IV SCH (20:13)
[2024-03-29 05:56] LABS: ABS Basophils 0.1 10^3/uL (0.0-0.1); ABS Lymphocytes 0.7 10^3/uL (1.0-4.8); ABS Monocytes 0.7 10^3/uL (0.0-1.1); ABS Neutrophils 6.7 10^3/uL (1.5-7.6); Hematocrit 37.3 % (38-53); Hemoglobin 12.9 g/dL (13.2-16.3); Lymphocyte % 8.2 %; Mean Corpuscular Hemoglobin 34.1 pg (27-33); Mean Corpuscular Hgb Conc 34.6 g/dL (31-36); Mean Corpuscular Volume 98.6 fL (80-97); Mean Platelet Volume 7.9 fL (7.5-11.2); Platelet Count 174 10^3/uL (150-450); Red Blood Count 3.79 10^6/uL (4.06-5.63); Red Cell Distribution Width 12.5 % (12-17); White Blood Count 8.2 10^3/uL (3.6-10.2)
[2024-03-29] MEDS: Metoprolol Tartrate 5 mg VIAL 5 ml VIAL (1 mg/ml) IV PRN (06:09)
[2024-03-29 06:38] LABS: Calcium 9.1 mg/dL (8.6-10.3); Creatinine, Serum 1.21 mg/dL (0.67-1.17); Magnesium 2.3 mg/dL (1.9-2.7); Potassium 4.3 mmol/L (3.5-5.0); eGFR CKD-EPI 63.6 (>60)
[2024-03-29] MEDS ORDERED: Sulfur Hexaflouride MICROSPHR 25 MG VIAL ONE (08:43)
[2024-03-29 10:07] LABS: C Reactive Protein 109.96 mg/L (<8.01)
[2024-03-29] MEDS: Metoprolol Tartrate 5 mg VIAL 5 ml VIAL (1 mg/ml) IV ONE (10:43)
[2024-03-29 12:27] LABS: Erythrocyte Sed Rate 51 mm/Hr (0-19)
[2024-03-29] MEDS: Magnesium Sulfate 2 gm BAG 2 GM/50 ML BAG IVPB ONE (12:52)
[2024-03-29] MEDS: Digoxin IV 0.5 MG/2 ML AMP (0.25 MG/ML) IV SLOW PU ONE (13:01)
[2024-03-29] MEDS: Digoxin IV 0.5 MG/2 ML AMP (0.25 MG/ML) IV SLOW PU SCH (20:32)
[2024-03-29] MEDS ORDERED: Digoxin IV 0.5 MG/2 ML AMP (0.25 MG/ML) IV SLOW PU SCH (21:00)
[2024-03-30] MEDS: Digoxin IV 0.5 MG/2 ML AMP (0.25 MG/ML) IV SLOW PU ONE ×2 (01:04→11:43)
[2024-03-30 06:57] LABS: Calcium 8.6 mg/dL (8.6-10.3); Creatinine, Serum 1.27 mg/dL (0.67-1.17); Digoxin 1.5 ng/ml (0.8-2.0); Potassium 3.9 mmol/L (3.5-5.0)
[2024-03-30] MEDS: Potassium Chlor 10 meq TAB PO ONE (10:40)
[2024-03-30 10:44] LABS: Magnesium 2.1 mg/dL (1.9-2.7)
[2024-03-31 05:30] LABS: ABS Basophils 0.1 10^3/uL (0.0-0.1); ABS Eosinophils 0.1 10^3/uL (0.0-0.5); ABS Lymphocytes 1.2 10^3/uL (1.0-4.8); ABS Monocytes 0.7 10^3/uL (0.0-1.1); ABS Neutrophils 4.6 10^3/uL (1.5-7.6); ABS Nucleated RBC 0.01 10^3/ul; Eosinophil % 2.2 %; Lymphocyte % 17.5 %; Mean Corpuscular Hemoglobin 33.8 pg (27-33); Mean Corpuscular Hgb Conc 34.1 g/dL (31-36); Mean Platelet Volume 7.2 fL (7.5-11.2); Nucleated Red Blood Cells % 0.2 %/100WBC (0.0-0.8); Platelet Count 220 10^3/uL (150-450); Red Blood Count 3.84 10^6/uL (4.06-5.63); Red Cell Distribution Width 12.6 % (12-17); White Blood Count 6.7 10^3/uL (3.6-10.2)
[2024-03-31 06:05] LABS: Calcium 9.2 mg/dL (8.6-10.3); Creatinine, Serum 1.16 mg/dL (0.67-1.17); Potassium 4.2 mmol/L (3.5-5.0); eGFR CKD-EPI 66.9 (>60)
[2024-03-31] MEDS: Empagliflozin 25 MG TAB PO SCH (09:46)
[2024-04-01 07:07] LABS: Hemoglobin 13.6 g/dL (13.2-16.3); Mean Corpuscular Hemoglobin 33.3 pg (27-33); Mean Corpuscular Hgb Conc 33.9 g/dL (31-36); Mean Platelet Volume 6.8 fL (7.5-11.2); Platelet Count 221 10^3/uL (150-450); Red Blood Count 4.08 10^6/uL (4.06-5.63); Red Cell Distribution Width 12.4 % (12-17); White Blood Count 6.3 10^3/uL (3.6-10.2)
[2024-04-01 07:36] LABS: Calcium 9.1 mg/dL (8.6-10.3); Creatinine, Serum 1.16 mg/dL (0.67-1.17); Magnesium 1.8 mg/dL (1.9-2.7); Potassium 4.1 mmol/L (3.5-5.0); eGFR CKD-EPI 66.9 (>60)
[2024-04-01] MEDS: Magnesium Sulfate 2 gm BAG 2 GM/50 ML BAG IVPB ONE (08:31)
[2024-04-01 08:43] LABS: C Reactive Protein 18.13 mg/L (<8.01)
[2024-04-01] MEDS ORDERED: fentaNYL 100 mcg/2 ml 50 MCG/ML VIAL ONE (10:10)
[2024-04-01] MEDS ORDERED: Flumazenil 0.5 mg/5 ml 0.1 MG/ML 5 ml VIAL ONE (10:11)
[2024-04-01] MEDS ORDERED: Midazolam 5 mg/5 ml VIAL 1 mg/ml 5 ml VIAL (5 mg) ONE (10:11)
[2024-04-01] MEDS ORDERED: Naloxone 0.4 mg VIAL 0.4 mg/ml 1 ml VIAL ONE (10:11)
[2024-04-01] MEDS: Midazolam 10 mg/10 ml VIAL 1 mg/ml 10 ml VIAL (10 mg) IV SLOW PU ONE (10:44)
[2024-04-01] MEDS: fentaNYL 100 mcg/2 ml 50 MCG/ML VIAL IV SLOW PU ONE (10:44)
[2024-04-01 13:41] LABS: Anaplasma phagocytophilum Negative (Negative); B. miyamotoi PCR, B Negative (Negative); Babesia divergens/MO-1 Negative (Negative); Babesia ducani Negative (Negative); Ehrlichia chaffeensis Negative (Negative); Ehrlichia ewingii/canis Negative (Negative); Ehrlichia muris eauclairensis Negative (Negative)
[2024-04-01 17:06] LABS: Bartonella Henselae IgG <1:128 titer (<1:128); Bartonella Henselae IgM <1:20 titer (<1:20); Bartonella Quintana IgG <1:128 titer (<1:128); Bartonella Quintana IgM <1:20 titer (<1:20)
[2024-04-02 05:29] LABS: ABS Eosinophils 0.2 10^3/uL (0.0-0.5); ABS Monocytes 0.8 10^3/uL (0.0-1.1); ABS Neutrophils 5.1 10^3/uL (1.5-7.6); ABS Nucleated RBC 0.01 10^3/ul; Eosinophil % 2.2 %; Hematocrit 39.7 % (38-53); Hemoglobin 13.6 g/dL (13.2-16.3); Lymphocyte % 13.9 %; Mean Corpuscular Hemoglobin 33.4 pg (27-33); Mean Corpuscular Hgb Conc 34.2 g/dL (31-36); Mean Corpuscular Volume 97.7 fL (80-97); Mean Platelet Volume 7.1 fL (7.5-11.2); Nucleated Red Blood Cells % 0.1 %/100WBC (0.0-0.8); Platelet Count 231 10^3/uL (150-450); Red Blood Count 4.06 10^6/uL (4.06-5.63); Red Cell Distribution Width 12.4 % (12-17); White Blood Count 7.1 10^3/uL (3.6-10.2)
[2024-04-02 05:49] LABS: Calcium 9.3 mg/dL (8.6-10.3); Creatinine, Serum 1.19 mg/dL (0.67-1.17); Potassium 3.9 mmol/L (3.5-5.0); eGFR CKD-EPI 64.9 (>60)
[2024-04-02 10:21] LABS: Hemoglobin 14.5 g/dL (13.2-16.3)
[2024-04-02 18:43] LABS: ABS Basophils 0.1 10^3/uL (0.0-0.1); ABS Eosinophils 0.1 10^3/uL (0.0-0.5); ABS Neutrophils 6.6 10^3/uL (1.5-7.6); Hematocrit 40.1 % (38-53); Lymphocyte % 11.4 %; Mean Corpuscular Hemoglobin 33.9 pg (27-33); Mean Corpuscular Hgb Conc 34.9 g/dL (31-36); Mean Corpuscular Volume 97.3 fL (80-97); Mean Platelet Volume 7.1 fL (7.5-11.2); Platelet Count 257 10^3/uL (150-450); Red Blood Count 4.12 10^6/uL (4.06-5.63); Red Cell Distribution Width 12.6 % (12-17); White Blood Count 8.8 10^3/uL (3.6-10.2)
[2024-04-03 05:10] LABS: ABS Basophils 0.1 10^3/uL (0.0-0.1); ABS Eosinophils 0.2 10^3/uL (0.0-0.5); ABS Lymphocytes 1.2 10^3/uL (1.0-4.8); ABS Monocytes 1.1 10^3/uL (0.0-1.1); ABS Neutrophils 5.4 10^3/uL (1.5-7.6); Eosinophil % 2.2 %; Hematocrit 38.6 % (38-53); Hemoglobin 13.5 g/dL (13.2-16.3); Lymphocyte % 15.4 %; Mean Corpuscular Hemoglobin 33.8 pg (27-33); Mean Corpuscular Hgb Conc 35.1 g/dL (31-36); Mean Corpuscular Volume 96.2 fL (80-97); Mean Platelet Volume 7.2 fL (7.5-11.2); Platelet Count 236 10^3/uL (150-450); Red Blood Count 4.01 10^6/uL (4.06-5.63); Red Cell Distribution Width 12.5 % (12-17)
[2024-04-03 05:40] LABS: Creatinine, Serum 1.21 mg/dL (0.67-1.17); Magnesium 1.9 mg/dL (1.9-2.7); Potassium 3.8 mmol/L (3.5-5.0); eGFR CKD-EPI 63.6 (>60)
[2024-04-03] MEDS: Potassium Chlor 20 meq TAB.ER PO ONE (10:12)
[2024-04-03] MEDS: Metoprolol Tartrate 5 mg VIAL 5 ml VIAL (1 mg/ml) IV PRN (15:26)
[2024-04-04 06:02] LABS: Calcium 9.2 mg/dL (8.6-10.3); Creatinine, Serum 1.23 mg/dL (0.67-1.17); Magnesium 1.8 mg/dL (1.9-2.7); Potassium 3.8 mmol/L (3.5-5.0); eGFR CKD-EPI 62.4 (>60)
[2024-04-04] MEDS: Magnesium Sulfate 2 gm BAG 2 GM/50 ML BAG IVPB ONE (07:31)
[2024-04-04] MEDS: Potassium Chlor 20 meq TAB.ER PO ONE (09:57)
[2024-04-04 13:52] VITALS: BP 141/96
== END 2024-04-04 14:18 | disposition home or self-care (01) | DRG 309 ==
LOC: EDHOLD 12:20 → ED 12:20 → SUATTDRO 16:46 → MEDTELE 18:12 → SUATTDRO 03-30
PROVIDERS: ADMIT Hospitalist; ATTEND Internal Medicine